=== PATIENT | female | born 1970 | race Hispanic/Latino ===

== ENCOUNTER 2018-07-01 15:41 | Outpatient (CLI) | payer BC | END 2018-07-01 15:42 | disposition home or self-care (01) | LOC: BICMAMMO 15:41 | PROVIDERS: ATTEND Family Medicine | DX: Z12.31 Encounter for screening mammogram for malignant neoplasm of breast (principal); R92.1 Mammographic calcification found on diagnostic imaging of breast | CPT/HCPCS: 77063; 77067 ==

== ENCOUNTER 2019-03-10 08:23 | Observation (INO) | payer BC ==
[2019-03-10 09:14] LABS: Hemoglobin 14.6 g/dL (12.0-16.0); Mean Corpuscular HGB CONC 33.4 g/dL (32.0-36.0); Mean Corpuscular Hemoglobin 30.6 pg (27.0-31.0); Mean Corpuscular Volume 91.5 fL (78.0-98.0); Mean Platelet Volume 8.8 fL (7.4-10.4); Platelet Count 222 thou/uL (130-400); RBC Distribution Width 11.9 % (11.5-14.5); Red Blood Cell (RBC) Count 4.78 mill/uL (4.20-5.40)
[2019-03-10] MEDS ORDERED: Morphine 4 MG/ML VIAL ONE (09:14)
[2019-03-10] MEDS ORDERED: Ondansetron PF 4 MG/2 ML Vial ONE ×2 (09:16→15:15)
[2019-03-10 09:18] LABS: Bilirubin Small (Negative); Blood, Urine Small (Negative); Clarity CLOUDY (Clear); Glucose, Urine (Dipstick) Negative (Negative); Leukocyte Large (Negative); Nitrite Negative (Negative); Protein, Urine (Dipstick) 30 mg/dL (Neg-Trace); Specific Gravity, Urine 1.021 (1.002-1.036)
[2019-03-10 09:21] LABS: Hyaline Casts/LPF 4-6 HYALINE CAST LPF (0-3 Hyaline); Pathc Cast-AUWi Flag 1.76 (0-2.49)
[2019-03-10 09:29] LABS: ALT (SGPT) 138 U/L (8-55); AST (SGOT) 168 U/L (5-34); Albumin 3.9 g/dL (3.5-5.0); Alkaline Phosphatase 74 U/L (40-150); Anion Gap 10 mmol/L (10-20); BUN (Urea Nitrogen) 12 mg/dL (7.0-18.7); Bilirubin, Total 1.6 mg/dL (0.2-1.2); Calc. Creatinine Clearance 0 mL/min (70-130); Calcium 9.1 mg/dL (7.8-10.44); Carbon Dioxide 27 mmol/L (22-29); Chloride 102 mmol/L (98-107); Estimated GFR-MDRD 73; Globulin 3.4 g/dL (2.4-3.5); Glucose 112 mg/dL (70-105); Lipase 84 U/L (8-78); Potassium 3.6 mmol/L (3.5-5.1); Protein, Total 7.3 g/dL (6.0-8.3); Sodium 135 mmol/L (136-145)
[2019-03-10 09:34] LABS: Band 5 % (5-11); Eosinophils 2 % (0-10); Lymphocytes 21 % (21-51); MDiff Complete? YES; Monocytes 3 % (0-10); Neutrophil 69 % (42-75); RBC Morphology Normal
[2019-03-10 09:36] LABS: Yeast-AUWi Flag 57.4 (0-25.0)
[2019-03-10 09:48] LABS: Bacteria/HPF 2+ HPF (None Seen); Yeast-All Forms 1+ HPF (None Seen)
--- NOTE | 2019-03-10 11:44 | ULT ---
RIGHT UPPER QUADRANT ULTRASOUND: HISTORY: Right upper quadrant pain. FINDINGS: The liver demonstrates increased echogenicity, consistent with fatty infiltration. No focal mass or intrahepatic ductal dilatation is seen. There are nonmobile shadowing gallstones within the gallblad ana neck, without gallbladder wall thickening or pericholecystic fluid. The common duct measures 8 m m in diameter. The right kidney is unremarkable. The pancreas is not satisfactorily visualized due to overlying bowel gas. No free fluid is seen in the Gao pouch. IMPRESSION: 1. Cholelithiasis. 2. Fatty liver. POS: [facility]
[2019-03-10] MEDS ORDERED: MEROPENEM 1 GM/50 ML 1 GM in Premix Bag 1 BAG IVPB SCH (12:00)
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
[2019-03-10] MEDS ORDERED: Iothalamate Meglumine 60% 50 ML VIAL FS ONE (12:57)
[2019-03-10] MEDS ORDERED: Bupivacaine/Epinephrine 0.25% 30 ML VIAL ONE (12:57)
[2019-03-10] MEDS ORDERED: Fentanyl 100 MCG/2 ML VIAL ONE ×2 (13:04→16:14)
[2019-03-10] MEDS ORDERED: Lidocaine 1% PF 5 ML VIAL ONE (15:15)
[2019-03-10] MEDS ORDERED: Metoclopramide HCl 10 MG/2 ML VIAL ONE ×2 (15:15→15:51)
[2019-03-10] MEDS ORDERED: Glycopyrrolate 0.2 MG/ML 5 ML SYRINGE ONE (15:15)
[2019-03-10] MEDS ORDERED: PHENYLEPHRINE-NS 100 MCG/ML 10 ML SYRINGE ONE (15:15)
[2019-03-10] MEDS ORDERED: Ketorolac Tromethamine 30 MG/ML VIAL ONE (15:15)
[2019-03-10] MEDS ORDERED: PROPOFOL 200 MG/20 ML VIAL ONE (15:15)
[2019-03-10] MEDS ORDERED: Dexamethasone 20 MG/5 ML VIAL ONE (15:15)
[2019-03-10] MEDS ORDERED: Rocuronium Bromide 10 MG/ML (10ML VIAL) ONE (15:15)
[2019-03-10] MEDS ORDERED: Ondansetron PF 4 MG/2 ML Vial IVP PRN (15:26)
[2019-03-10] MEDS ORDERED: Morphine 4 MG/ML VIAL SLOW IVP PRN (15:26)
[2019-03-10] MEDS ORDERED: Promethazine HCl 25 MG/ML VIAL IM PRN ×2 (15:26→15:30)
[2019-03-10] MEDS ORDERED: Calcium Carbonate 500 MG ChewTAB PO PRN (15:26)
[2019-03-10] MEDS ORDERED: Dextrose 5% in Water 1,000 ML IV PRN (15:26)
[2019-03-10] MEDS ORDERED: hydrALAZINE 20 MG/ML VIAL SLOW IVP PRN (15:26)
[2019-03-10] MEDS ORDERED: Dextrose 50% Abboject 50 ML SYRINGE SLOW IVP PRN (15:26)
[2019-03-10] MEDS ORDERED: Mag-Al 1200 mg/1200 mg/30 ML UDCUP PO PRN (15:26)
[2019-03-10] MEDS ORDERED: traMADol HCl 50 MG TAB PO PRN (15:29)
[2019-03-10] MEDS ORDERED: Meperidine HCl/PF 25 MG/ML VIAL SLOW IVP PRN (15:30)
[2019-03-10] MEDS ORDERED: Ondansetron HCl/PF 4 MG/2 ML Vial IVP PRN (15:30)
[2019-03-10] MEDS ORDERED: Promethazine HCl 25 MG/ML VIAL SLOW IVP PRN (15:30)
[2019-03-10] MEDS ORDERED: Acetaminophen 500 MG TAB PO SCH (15:30)
[2019-03-10] MEDS ORDERED: Ibuprofen 600 MG TAB PO PRN (15:31)
[2019-03-10] MEDS ORDERED: Acetaminophen 1,000 MG in Premix Bag 1 BAG IVPB PRN (15:31)
[2019-03-10] MEDS: Lactated Ringer's 1,000 ML IV SCH (17:06)
[2019-03-10 17:42] VITALS: BMI 44.8
[2019-03-10] MEDS: traMADol HCl 50 MG TAB PO PRN (19:26)
[2019-03-10] MEDS: Famotidine/PF 20 mg/2ml Vial SLOW IVP SCH (19:27)
[2019-03-10] MEDS ORDERED: Enoxaparin Sodium 40 MG/0.4 ML SYRINGE SC SCH (21:00)
[2019-03-10] MEDS: Famotidine 20 MG TAB PO SCH (21:35)
--- NOTE | 2019-03-10 21:47 | OP ---
DATE OF PROCEDURE: 03/10/2019 PREOPERATIVE DIAGNOSIS: Acute cholecystitis with cholelithiasis. POSTOPERATIVE DIAGNOSES: Acute cholecystitis with cholelithiasis and extensive intraabdominal adhesions. OPERATION PERFORMED: Laparoscopic cholecystectomy. ESTIMATED BLOOD LOSS: 25 mL. FLUIDS GIVEN: 1500 mL of crystalloids. COUNTS: Sponge and instrument counts were verified as correct x2. COMPLICATIONS: None apparent at the time of operation. INDICATIONS FOR OPERATION: A 48-year-old woman, presented with recurrent epigastric right upper quadrant abdominal pain. Clinical radiographic examination was consistent with acute cholecystitis with cholelithiasis for which the patient is brought to the operating room for cholecystectomy. Findings are consistent with an intrahepatic gallbladder completely encased by omental adhesions. Also noted were extensive intraabdominal adhesions from previous multiple abdominal operations. DESCRIPTION OF PROCEDURE: Informed consent was obtained from the patient. She was brought to the operating room and and placed in supine position. Following general anesthesia, abdomen was sterilely prepped and draped in usual fashion. The skin of right upper quadrant was anesthetized with 1% lidocaine. A stab incision was made using an 11 scalpel. Through this, a 5-mm trocar was introduced using a Visiport under laparoscopy. Abdomen had been insufflated with 3 L of CO2 gas. Then under direct laparoscopy, a 5-mm infraumbilical port was placed after the overlying skin was infiltrated with 0.25% Marcaine with epinephrine and appropriate incision was made. I then reintroduced the camera through the periumbilical port, navigating around the intraabdominal adhesions to transilluminate the epigastrium. Under laparoscopy, a 12-mm epigastric and 5-mm right lateral subcostal port were placed after the overlying skin was infiltrated with 0.25% Marcaine with epinephrine and appropriate incision was made. The patient was placed in a reverse Trendelenburg position, rotated to her left. I introduced a [place] dissector with cautery using this to take down omental adhesions to expose the fundus of the gallbladder. The gallbladder was completely intrahepatic. Prestige grasper was introduced through the right lateral subcostal port grasping the fundus of the gallbladder which was elevated cephalad. Omental adhesions were taken down off remainder of the gallbladder. A second Prestige grasper was introduced through the right medial subcostal port grasping the Tre pouch which was retracted laterally. The cystic duct was carefully dissected free from surrounding structures at the triangle of Calot. The duct was divided between clips, applying 2 clips proximally, 1 clip at the junction of the cystic duct and gallbladder. Cystic artery was divided between clips in a similar fashion. The gallbladder itself was removed from the liver bed using cautery. The gallbladder was delivered off the abdominal cavity using an EndoCatch. Operative site was inspected, noting good hemostasis in place. All clips remained in place. No bile stains present. Finding no other pathology, laparoscopy was terminated. Fascia of the epigastric port closed using 0 Vicryl suture and Endoclosure device under laparoscopy. The abdomen was desufflated. All ports and instruments removed and accounted for. Skin incisions were closed using 4-0 Monocryl suture in subcuticular fashion. Dermabond was applied over incisional closure. The patient tolerated the operation without any apparent complication and was not returned to the recovery room in a satisfactory condition. Job ID: [id number]
[2019-03-11] MEDS: Acetaminophen 500 MG TAB PO SCH ×2 (00:17→06:19)
[2019-03-11] MEDS: Lactated Ringer's 1,000 ML IV SCH ×2 (00:21→08:42)
[2019-03-11] MEDS: traMADol HCl 50 MG TAB PO PRN ×2 (01:33→08:42)
[2019-03-11 05:27] LABS: #Monocytes 0.5 thou/uL (0.11-0.59); #Neutrophils 8.5 thou/uL (1.40-6.50); %Basophils 0.1 % (0.0-1.0); %Eosinophils 0.1 % (0.0-10.0); %Lymphocytes 10.2 % (21.0-51.0); %Monocytes 5.1 % (0.0-10.0); %Neutrophils 84.5 % (42.0-75.0); Hemoglobin 12.8 g/dL (12.0-16.0); Mean Corpuscular Hemoglobin 31.4 pg (27.0-31.0); Mean Corpuscular Volume 92.2 fL (78.0-98.0); Platelet Count 187 thou/uL (130-400); RBC Distribution Width 11.8 % (11.5-14.5); Red Blood Cell (RBC) Count 4.07 mill/uL (4.20-5.40)
[2019-03-11 05:49] LABS: ALT (SGPT) 143 U/L (8-55); AST (SGOT) 87 U/L (5-34); Albumin 3.1 g/dL (3.5-5.0); Alkaline Phosphatase 60 U/L (40-150); Anion Gap 9 mmol/L (10-20); BUN (Urea Nitrogen) 8 mg/dL (7.0-18.7); Bilirubin, Direct 0.3 mg/dL (0.1-0.3); Bilirubin, Total 0.7 mg/dL (0.2-1.2); Calc. Creatinine Clearance 182 mL/min (70-130); Carbon Dioxide 20 mmol/L (22-29); Chloride 107 mmol/L (98-107); Estimated GFR-MDRD Greater than 90; Glucose 127 mg/dL (70-105); Protein, Total 5.8 g/dL (6.0-8.3); Sodium 132 mmol/L (136-145)
[2019-03-11] MEDS: Famotidine 20 MG TAB PO SCH (08:42)
[2019-03-11] MEDS: Famotidine/PF 20 mg/2ml Vial SLOW IVP SCH (08:43)
[2019-03-11 11:34] VITALS: BP 96/58; TEMP 98.2
--- NOTE | 2019-03-11 19:51 | DIS ---
DATE OF ADMISSION: 03/10/2019 DATE OF DISCHARGE: 03/11/2019 This is Marva Cisneros NP dictating a report for Shiv Rivera DO. PROCEDURES: 1. On 03/10/2019, abdominal ultrasound remarkable for large solitary stone impacting the gallbladder neck. There is also some biliary sludge. Common bile duct is obviously dilated for the patient's age and almost 8 mm in diameter. There is gallbladder wall thickening present. 2. On 03/10/2019, laparoscopic cholecystectomy performed for acute cholecystitis with cholelithiasis. Also extensive intraabdominal adhesions. PRIMARY DIAGNOSES: Acute cholecystitis with cholelithiasis and extensive intraabdominal adhesions. SECONDARY DIAGNOSES: Essential hypertension and morbid obesity. DISCHARGE MEDICATIONS: 1. Tramadol 1-2 tabs 50 mg q.6 hours as needed for pain, #20. 2. Tylenol 1000 mg q.6 hours. 3. Atenolol 50 mg p.o. daily. 4. Estradiol 2 mg p.o. daily. 5. Ibuprofen 600 mg q.8 hours. 6. Olmesartan/hydrochlorothiazide 40/12.5 one tab daily. 7. There are no discontinued medications. HISTORY OF PRESENT ILLNESS AND HOSPITAL COURSE: This is a 48-year-old morbidly obese, woman, who presented to the emergency department with insidious onset of epigastric abdominal pain. The patient states that the pain started the night before arriving to the ER. The patient describes the pain as sharp and rated 4/10. Pain was also associated with multiple episodes of nausea and nonbilious emesis. The patient denies any radiation of pain. The patient also reported that the pain intensified this morning and was high as 10/10 with associated chills. The patient reports similar pain one month ago after lunch consisting of a hamburger. The pain, however one month ago resolved spontaneously and was not as intense as this morning. The patient also reports recent abdominal bloating and frequent flatulence. The patient was taken to the OR for laparoscopic cholecystectomy without any adverse events. The patient had no overnight events. On the day of discharge, the patient was evaluated by Dr. Rivera. The patient had no complaints nor did the family. The patient's vital signs were stable on the day of discharge and exam was unremarkable including cardiopulmonary and GI exam. The patient was deemed stable for discharge home. DISPOSITION: Stable. DISCHARGE INSTRUCTIONS: 1. Location: Home. 2. Diet: Regular diet. 3. Activity: As tolerated. No lifting heavier than 20 pounds until followup. 4. Follow up with Dr. Rivera on 03/18 at 10:30 a.m. Will need lab work done before the appointment. Job ID: [id number]
[2019-03-12] MEDS ORDERED: Atenolol 50 MG TAB PO SCH ×2 (09:00)
[2019-03-12] MEDS ORDERED: Non-Formulary Item 1 EACH (Olmesartan/Hydrochlorothiazide [Olmesartan-Hctz 40-12.5 Mg Tab PO SCH (09:00)
[2019-03-12] MEDS ORDERED: Estradiol 1 MG TAB PO SCH (09:00)
[2019-03-12] MEDS ORDERED: Hydrochlorothiazide 25 MG TAB PO SCH (09:00)
[2019-03-12] MEDS ORDERED: Non-Formulary Item 1 EACH (Estradiol [Estradiol] 2 MG) PO SCH (09:00)
== END 2019-03-11 12:30 | disposition home or self-care (01) ==
LOC: ERS 08:23 → SURG A 17:10
PROVIDERS: ADMIT Surgery; ATTEND Surgery
PROC: 0FT44ZZ Resection of Gallbladder, Percutaneous Endoscopic Approach (ICD-10-PCS; principal; 2019-03-10)
DX: K80.12 Calculus of gallbladder with acute and chronic cholecystitis without obstruction (principal); K66.0 Peritoneal adhesions (postprocedural) (postinfection); I10 Essential (primary) hypertension; K76.0 Fatty (change of) liver, not elsewhere classified; E66.01 Morbid (severe) obesity due to excess calories; Z68.41 Body mass index [BMI] 40.0-44.9, adult; Z79.899 Other long term (current) drug therapy; Z90.49 Acquired absence of other specified parts of digestive tract; Z90.710 Acquired absence of both cervix and uterus; Z90.722 Acquired absence of ovaries, bilateral; Z90.79 Acquired absence of other genital organ(s); Z98.890 Other specified postprocedural states
CPT/HCPCS: 36415; 76705; 80048; 80053; 80076; 81003; 81015; 83690; 85025; 88304; 93005; 96361; 96372; 96374; 96375; G0378; J0131; J1100; J1650; J1885; J2001; J2185; J2270; J2405; J2704; J2765; J3010; Q9961; S0028

== ENCOUNTER 2020-05-12 18:45 | Emergency (ER) | payer BC, OTHER ==
[2020-05-13 14:13] LABS: SARS-CoV-2 MS2 Positive; SARS-CoV-2 N Gene Negative; SARS-CoV-2 S Gene Negative; SARS-CoV-2 by NAA Not Detected (NotDetected); SARS-CoV-2 orf1ab Negative
== END 2020-05-12 19:14 | disposition home or self-care (01) ==
LOC: ERS 18:45
DX: Z20.828 Contact with and (suspected) exposure to other viral communicable diseases (principal); I10 Essential (primary) hypertension; Z79.899 Other long term (current) drug therapy
CPT/HCPCS: 87635; 99283; U0003

== ENCOUNTER 2021-05-28 15:57 | Observation (INO) | payer BC ==
[~2021-05-28 15:57] MED LIST: Iopamidol-370 76% 500 ML 1 ML ONE
[2021-05-28 17:15] LABS: #Eosinphils 0.2 thou/uL (0.0-0.7); #Lymphocytes 1.9 thou/uL (1.20-3.40); #Monocytes 0.6 thou/uL (0.11-0.59); #Neutrophils 7.7 thou/uL (1.40-6.50); %Basophils 0.5 % (0.0-1.0); %Eosinophils 1.7 % (0.0-10.0); %Lymphocytes 17.9 % (21.0-51.0); %Monocytes 6.1 % (0.0-10.0); %Neutrophils 73.8 % (42.0-75.0); Hemoglobin 15.1 g/dL (12.0-16.0); Mean Corpuscular HGB CONC 33.7 g/dL (32.0-36.0); Mean Corpuscular Hemoglobin 31.2 pg (27.0-31.0); Mean Corpuscular Volume 92.5 fL (78.0-98.0); Mean Platelet Volume 7.5 fL (7.4-10.4); Platelet Count 243 thou/uL (130-400); RBC Distribution Width 11.7 % (11.5-14.5); Red Blood Cell (RBC) Count 4.83 mill/uL (4.20-5.40); White Blood Cell (WBC) Count 10.4 thou/uL (4.8-10.8)
[2021-05-28 17:40] LABS: ALT (SGPT) 25 U/L (8-55); AST (SGOT) 23 U/L (5-34); Alkaline Phosphatase 62 U/L (40-110); Anion Gap 11 mmol/L (10-20); BUN (Urea Nitrogen) 9 mg/dL (9.8-20.1); Bilirubin, Total 0.4 mg/dL (0.2-1.2); CK (CPK) 108 U/L (29-168); Calc. Creatinine Clearance 0 mL/min (70-130); Calcium 9.3 mg/dL (7.8-10.44); Carbon Dioxide 26 mmol/L (22-29); Chloride 104 mmol/L (98-107); Globulin 3.7 g/dL (2.4-3.5); Glucose 123 mg/dL (70-105); Lipase 33 U/L (8-78); Potassium 3.9 mmol/L (3.5-5.1); Protein, Total 7.7 g/dL (6.0-8.3); Sodium 137 mmol/L (136-145)
[2021-05-28] MEDS ORDERED: Morphine 4 MG/ML VIAL ONE (19:54)
[2021-05-28] MEDS ORDERED: Ondansetron PF 4 MG/2 ML Vial ONE (19:54)
[2021-05-28] MEDS ORDERED: Ketorolac Tromethamine 30 MG/ML VIAL ONE (22:55)
[2021-05-29 00:54] VITALS: BMI 44.9
[2021-05-29] MEDS: metroNIDAZOLE 500 MG in Premix Bag 1 BAG IVPB SCH ×2 (02:29→11:11)
[2021-05-29] MEDS: Lactated Ringer's 1,000 ML IV SCH ×2 (02:29→11:12)
[2021-05-29] MEDS ORDERED: Senokot S 8.6-50 MG TAB PO PRN (08:13)
[2021-05-29] MEDS ORDERED: Bisacodyl 5 MG TAB PO PRN (08:13)
[2021-05-29] MEDS ORDERED: Ondansetron PF 4 MG/2 ML Vial IVP PRN (08:13)
[2021-05-29] MEDS ORDERED: Ondansetron ODT 4 MG TAB PO PRN (08:13)
[2021-05-29] MEDS: Enoxaparin Sodium 40 MG/0.4 ML SYRINGE SC SCH (08:45)
[2021-05-29] MEDS ORDERED: Acetaminophen 325 MG TAB PO PRN (10:38)
[2021-05-29] MEDS: HYDROcodone/Acetaminophen 5/325 mg Tablet PO PRN ×2 (11:12→18:13)
[2021-05-29 11:39] LABS: SARS-CoV-2 PCR by NAA Not Detected (NotDetected)
[2021-05-29] MEDS ORDERED: Sodium Chloride 0.9% 1,000 ML IV SCH (12:30)
[2021-05-29] MEDS: Metamucil PACK PO SCH (20:10)
[2021-05-29] MEDS ORDERED: Non-Formulary Item 1 EACH (Psyllium Husk [Metamucil] 0.4 GM Capsule) PO SCH (21:00)
[2021-05-29] MEDS ORDERED: SUMAtriptan Succinate 50 MG TAB PO PRN (21:06)
[2021-05-30 06:09] LABS: Eosinophils 12 % (0-10); Lymphocytes 30 % (21-51); MDiff Complete? YES; Mean Corpuscular HGB CONC 32.3 g/dL (32.0-36.0); Mean Corpuscular Hemoglobin 30.4 pg (27.0-31.0); Mean Corpuscular Volume 94.1 fL (78.0-98.0); Mean Platelet Volume 7.5 fL (7.4-10.4); Monocytes 12 % (0-10); Neutrophil 45 % (42-75); Platelet Count 163 thou/uL (130-400); Platelet Morphology Comment Appears Adequate; RBC Distribution Width 11.7 % (11.5-14.5); Reactive Lymphocytes 1 % (0-10); Red Blood Cell (RBC) Count 4.27 mill/uL (4.20-5.40); White Blood Cell (WBC) Count 4.4 thou/uL (4.8-10.8)
[2021-05-30 06:11] LABS: Albumin 3.2 g/dL (3.5-5.0); Anion Gap 10 mmol/L (10-20); BUN (Urea Nitrogen) 7 mg/dL (9.8-20.1); Bilirubin, Total 0.4 mg/dL (0.2-1.2); Calc. Creatinine Clearance 159 mL/min (70-130); Calcium 8.3 mg/dL (7.8-10.44); Carbon Dioxide 23 mmol/L (22-29); Chloride 110 mmol/L (98-107); Glucose 91 mg/dL (70-105); Potassium 3.9 mmol/L (3.5-5.1); Protein, Total 6.1 g/dL (6.0-8.3); Sodium 139 mmol/L (136-145)
[2021-05-30 06:12] LABS: ALT (SGPT) 17 U/L (8-55); AST (SGOT) 16 U/L (5-34); Alkaline Phosphatase 52 U/L (40-110); Globulin 2.9 g/dL (2.4-3.5)
[2021-05-30] MEDS: HYDROcodone/Acetaminophen 5/325 mg Tablet PO PRN (08:14)
[2021-05-30] MEDS: Enoxaparin Sodium 40 MG/0.4 ML SYRINGE SC SCH (08:16)
[2021-05-30] MEDS ORDERED: Losartan 25 MG TAB PO SCH (09:00)
[2021-05-30] MEDS ORDERED: Non-Formulary Item 1 EACH (Olmesartan/Hydrochlorothiazide [Olmesartan-Hctz 40-12.5 Mg Tab PO SCH (09:00)
[2021-05-30] MEDS ORDERED: FLUoxetine HCl 20 MG CAP PO SCH (09:00)
[2021-05-30] MEDS ORDERED: Hydrochlorothiazide 25 MG TAB PO SCH (09:00)
[2021-05-30] MEDS: Metamucil PACK PO SCH (09:00)
[2021-05-30] MEDS ORDERED: Estradiol 1 MG TAB PO SCH (09:00)
[2021-05-30 12:31] VITALS: BP 126/67; TEMP 96.8
== END 2021-05-30 16:00 | disposition home or self-care (01) ==
LOC: ERS 15:57 → ONC 23:49
PROVIDERS: ADMIT Internal Medicine; ATTEND Internal Medicine
DX: R10.84 Generalized abdominal pain (principal); R11.2 Nausea with vomiting, unspecified; I10 Essential (primary) hypertension; K42.9 Umbilical hernia without obstruction or gangrene; E66.01 Morbid (severe) obesity due to excess calories; Z68.42 Body mass index [BMI] 45.0-49.9, adult; Z79.899 Other long term (current) drug therapy; Z90.49 Acquired absence of other specified parts of digestive tract; Z20.822 Contact with and (suspected) exposure to COVID-19
CPT/HCPCS: 36415; 74018; 74177; 80053; 82550; 83690; 85007; 85025; 85027; 96365; 96372; 96375; 96376; G0378; J1650; J1885; J1956; J2270; J2405; Q9967; U0003; U0005

== ENCOUNTER 2022-02-12 17:34 | Emergency (ER) | payer BC ==
[2022-02-12 18:50] LABS: #Basophils 0.1 thou/uL (0.0-0.2); #Eosinphils 0.1 thou/uL (0.0-0.7); #Monocytes 0.6 thou/uL (0.11-0.59); %Basophils 0.6 % (0.0-1.0); %Eosinophils 0.9 % (0.0-10.0); %Lymphocytes 14.3 % (21.0-51.0); %Monocytes 4.4 % (0.0-10.0); %Neutrophils 79.9 % (42.0-75.0); Hemoglobin 15.3 g/dL (12.0-16.0); Mean Corpuscular Hemoglobin 30.6 pg (27.0-31.0); Mean Corpuscular Volume 95.5 fL (78.0-98.0); Mean Platelet Volume 7.5 fL (7.4-10.4); Platelet Count 230 thou/uL (130-400); RBC Distribution Width 11.6 % (11.5-14.5); White Blood Cell (WBC) Count 13.7 thou/uL (4.8-10.8)
[2022-02-12 19:12] LABS: ALT (SGPT) 27 U/L (8-55); AST (SGOT) 20 U/L (5-34); Albumin 4.1 g/dL (3.5-5.0); Alkaline Phosphatase 72 U/L (40-110); Anion Gap 15 mmol/L (10-20); BUN (Urea Nitrogen) 10 mg/dL (9.8-20.1); Bilirubin, Total 0.5 mg/dL (0.2-1.2); Calc. Creatinine Clearance 0 mL/min (70-130); Calcium 9.2 mg/dL (7.8-10.44); Carbon Dioxide 23 mmol/L (22-29); Chloride 103 mmol/L (98-107); Globulin 3.3 g/dL (2.4-3.5); Glucose 126 mg/dL (70-105); Lipase 53 U/L (8-78); Protein, Total 7.4 g/dL (6.0-8.3); Sodium 136 mmol/L (136-145)
[2022-02-12] MEDS ORDERED: Ondansetron PF 4 MG/2 ML Vial ONE (19:24)
[2022-02-12 19:29] LABS: Bacteria/HPF None Seen HPF (None Seen); Bilirubin Negative (Negative); Blood, Urine Negative (Negative); Clarity Clear (Clear); Glucose, Urine (Dipstick) Normal (Negative); Ketone, Urine 10 mg/dL (Negative); Leukocyte 250 Leu/uL (Negative); Nitrite Negative (Negative); Protein, Urine (Dipstick) Negative (Neg-Trace); RBC/HPF 0-3 HPF (0-3); Specific Gravity, Urine 1.018 (1.002-1.036); Squamous Epithelial 0-3 HPF (0-3); Urobilinogen Normal mg/dL (Less than 2); WBC/HPF 0-3 HPF (0-3)
[2022-02-12] MEDS ORDERED: Morphine 4 MG/ML VIAL ONE (20:05)
== END 2022-02-12 21:42 | disposition home or self-care (01) ==
LOC: ERS 17:34
DX: K52.9 Noninfective gastroenteritis and colitis, unspecified (principal); I10 Essential (primary) hypertension; Z79.899 Other long term (current) drug therapy
CPT/HCPCS: 36415; 71045; 74177; 80053; 81003; 81015; 83690; 84484; 85025; 93005; 96374; 96375; J2270; J2405; Q9967